=== PATIENT | male | born 1965 | race African-American/Black ===

== ENCOUNTER 2017-01-22 07:34 | Emergency (ER) | payer OTHER ==
--- NOTE | ~2017-01-22 | EKG ---
PATIENT: BOBBI ROJAS UNIT #: [id number] Ventricular Rate: 55 BPM Atrial Rate: 55 BPM P-R Interval: 136 ms QRS Duration: 80 ms Q-T Interval: 412 ms QTC Calculation(Bezet): 394 ms P Goldvein: -32 degrees Calculated R Goldvein: 17 degrees Calculated T Goldvein: -6 degrees Diagnosis Line: Unusual P axis, possible ectopic atrial Diagnosis Line: bradycardia Diagnosis Line: Nonspecific T wave abnormality Diagnosis Line: Abnormal ECG Diagnosis Line: When compared with ECG of 23-JUN-2015 15:29, Diagnosis Line: Ectopic atrial rhythm has replaced Sinus rhythm Diagnosis Line: Confirmed by WILLIE SAGASTUME MD ([id number]) on Diagnosis Line: 01/27/2017 10:39:52 AM INTERPRETING MD: TANIKA PETTIT
--- NOTE | ~2017-01-22 | CR72 ---
[facility]. [facility] A Service of [facility] & [facility] RADIOLOGY TEXT RESULTS PATIENT: BOBBI ROJAS LOCATION: SED : 67 UNIT #: [id number] AGE: [address]: Lonnie Ruiz MD SEX: M ORDER DR: [id number] [place] [id number] E MR#: [id number] Acc #: [id number] NAME: BOBBI ROJAS. : 1965 SEX: M STUDY DATE/TIME: 01/22/2017 8:52 UNIT: SED ROOM: STUDY DESCRIPTION: CR Chest Single View Portable Attending Physician: Lonnie Ruiz M.D. Ordering Physician: Lonnie Ruiz M.D. Primary Care Physician: Ayan Moctezuma M.D. MEDICAL IMAGING REPORT This report is preliminary unless electronic signature is present. EXAM Portable chest 01/22/2017 HISTORY Chest pain for 5 days. Benign essential hypertension. FINDINGS A single AP portable view of the chest shows both lungs to be clear. The heart is normal in size. The mediastinal contour is normal. No significant bone abnormalities are seen. IMPRESSION Normal portable chest. Dictated by... Ryder Bowen M.D. THIS IS AN ELECTRONICALLY VERIFIED REPORT Ryder Bowen M.D. at 01/23/2017 6:36 AM KRT/to TD: 01/22/2017 14:56 JOB #: [id number] MEDICAL IMAGING REPORT Page 1 of 1
[~2017-01-22 07:34] MED LIST: ACID REFLUX MED; ACID REFLUX MED PO; ALBUTEROL17 GM INH; ALBUTEROL20 ml INH; AMOXICILLIN500 M1 PO; AUGMENTIN PO; BACITRACIN OINTMENT; BP MED; BP MED PO; BP MED?; CLARITIN10 MG PO; ERYTHROMYCIN B500 MG PO; FIORICET 50-321 EACH PO; FLEXERIL10 M1 PO; FLEXERIL10 MG PO; HYDROCODON-ACE1 EAC7 PO; IBUPROFEN600 MG PO; IBUPROFEN800 MG PO; LEVAQUIN750 MG PO; LORTAB 7.5-5001 TAB PO; MOBIC PO; MUSCLE RELAXER; NO MEDICATIONS; NORVASC PO; PHENERGAN W/CO120 ML PO; PREDNISONE PO; PROMETHAZINE D118 ML PO; PROTONIX PO; SUDAFED30 M1 PO; VICODIN 5/1 TAB 5/50 PO; VICODIN 5/500 T1 TAB PO; VOLTAREN50 MG PO; ZESTORETIC1 TAB PO; ZITHROMAX PO; [UNRECOGNIZED DRUG - REMARK]; [UNRECOGNIZED DRUG - REMARK]; [UNRECOGNIZED DRUG - REMARK]; [UNRECOGNIZED DRUG - REMARK]
[2017-01-22] MEDS ORDERED: NO MEDICATIONS (07:54)
[2017-01-22 08:09] LABS: BASOPHIL% 0.8 % (0-2.5); EOSINOPHIL# 0.1 X10e3 (0-0.7); EOSINOPHIL% 1.8 % (0.0-7.0); HEMATOCRIT 38.1 % (38.0-50.0); HEMOGLOBIN 12.9 gm/dL (13.0-16.0); LYMPHOCYTE# 1.9 X10e3 (1.0-3.5); LYMPHOCYTE% 32.9 % (17.0-45.0); MEAN CELL VOLUME 94.7 FL (83-96); MEAN CORPUSCULAR HEMOGLOBIN 32.1 PG (28-34); MEAN CORPUSCULAR HGB CONC 33.9 g/dL (30-36); MEAN PLATELET VOLUME 10.3 FL (6.5-11.5); MONOCYTE# 0.6 X10e3 (0-1.0); MONOCYTE% 9.7 % (3.0-12.0); NEUTROPHIL# 3.1 X10e3 (1.5-7.1); NEUTROPHIL% 54.8 % (40-75); PLATELET COUNT 150 X10e3 (140-420); RED BLOOD COUNT 4.03 X10e (3.90-5.60); RED CELL DISTRIBUTION WIDTH 12.8 % (11.0-15.5); WHITE BLOOD COUNT 5.7 X10e3 (4.0-10.5)
[2017-01-22 08:10] LABS: DIFF IND NO
[2017-01-22 08:25] LABS: ALBUMIN SERUM 3.9 g/dL (3.5-5.0); BILIRUBIN,TOTAL 0.5 mg/dL (0.2-2.0); CALCIUM SERUM 8.6 mg/dL (8.4-10.2); CREATININE SERUM 0.8 mg/dL (0.6-1.4); GLOM FILT RATE Estimated 120.8 mL/min (>60); POTASSIUM 3.8 mmol/L (3.5-5.1)
[2017-01-22 08:29] LABS: POC - CKMB 1.5 ng/mL (0.0-7.9); POC - MYOGLOBIN 42.7 ng/mL (0.0-169.0)
[2017-01-22 08:30] LABS: POC - TROPONIN <0.05 ng/mL (<=0.05)
== END 2017-01-22 09:49 | disposition home or self-care (01) ==
LOC: SED 07:34
PROVIDERS: Emergency Medicine
DX: R07.89 Other chest pain (principal); I10 Essential (primary) hypertension; Z88.5 Allergy status to narcotic agent; Z91.040 Latex allergy status
CPT/HCPCS: 71010; 80053; 82553; 83874; 84484; 85025; 93005; 96374; 99285; J1885